=== PATIENT | male | born 1985 | race Caucasian/White ===

== ENCOUNTER 2016-11-23 10:44 | Emergency (ER) | payer MEDICAID ==
[2016-11-23 14:15] VITALS: BP 125/82
== END 2016-11-23 14:15 | disposition home or self-care (01) ==
LOC: EDBD 10:44 → ED 10:44
DX: F15.10 Other stimulant abuse, uncomplicated (principal); F41.9 Anxiety disorder, unspecified
CPT/HCPCS: J2060